=== PATIENT | female | born 1960 | race Caucasian/White ===

== ENCOUNTER 2016-12-03 16:35 | Emergency (ER) | payer BC ==
[~2016-12-03] VITALS: Ht 162.6 cm; Wt 116.3 kg
[~2016-12-03 16:35] MED LIST: ASPIRIN325 MG PO; EFFEXOR25 MG PO; PREMARIN0.45 MG PO; RITALIN5 MG PO
[2016-12-03 20:51] LABS: ADD MIUA? YES; BILIRUBIN SMALL; BLOOD NEGATIVE; COLOR YELLOW ((YELLOW)); GLUCOSE (STRIP) NEGATIVE; KETONES NEGATIVE; LEUKOCYTES TRACE; NITRITE NEGATIVE; PROTEIN (STRIP) 30; SPECIFIC GRAVITY 1.031 (1.000-1.030); UROBILINOGEN 0.2 MG/DL (0.2-1.0)
[2016-12-03 21:13] LABS: BACTERIA RARE /HPF; EPITHELIAL CELLS 2+ /HPF; MUCUS 2+ /LPF; RED BLOOD CELLS 0-5 /HPF (0-5); UCUL ADDED? NO
[2016-12-03 21:24] LABS: HEMATOCRIT 42.2 % (36.0-46.0); MCH 29.2 PG (29.0-34.0); MCHC 32.2 G/DL (30.0-36.0); MCV 90.8 FL (83-99); MEAN PLAT.VOLUME 10.1 uM^3 (9.5-12.4); PLATELET COUNT 259 K/uL (156-360); RBC DIS.WIDTH-CV 12.7 % (11.8-14.6); RBC DIS.WIDTH-SD 41.6 % (39-53); RED BLOOD COUNT 4.65 M/uL (3.80-5.20); WHITE BLOOD COUNT 9.6 K/uL (4.1-10.2)
[2016-12-03 21:32] LABS: CHLORIDE 106 mEq/L (99-109); POTASSIUM 3.9 mEq/L (3.7-5.4); SODIUM 143 mEq/L (136-147)
[2016-12-03 21:34] LABS: GLUCOSE 117 mg/dL (70-99)
[2016-12-03 21:36] LABS: ANION GAP 8 MEQ/L (2-14); TOTAL BILIRUBIN 0.3 mg/dL (0.0-1.0)
[2016-12-03 21:38] LABS: ALKALINE PHOSPHATASE 112 IU/L (3-129); GFR ESTIMATE (CALCULATED) > 59 mL/min/
[2016-12-03 21:39] LABS: UREA NITROGEN (BUN) 21 mg/dL (9-23)
[2016-12-03 21:41] LABS: LIPASE 19 U/L (1.0-51.0)
[2016-12-03] MEDS ORDERED: ULTRAM50 MG PO (23:39)
[2016-12-03 23:56] VITALS: BP 132/72
== END 2016-12-03 23:57 | disposition home or self-care (01) ==
LOC: EME 16:35
PROVIDERS: Nurse Practitioner Family
DX: K57.90 Diverticulosis of intestine, part unspecified, without perforation or abscess without bleeding (principal); N20.0 Calculus of kidney; Z87.442 Personal history of urinary calculi; R10.11 Right upper quadrant pain; R07.9 Chest pain, unspecified; E78.5 Hyperlipidemia, unspecified; Z79.82 Long term (current) use of aspirin; F17.200 Nicotine dependence, unspecified, uncomplicated
CPT/HCPCS: 71020; 74176; 76705; 80053; 81003; 83690; 85027; 99281; 99284

== ENCOUNTER 2017-01-19 13:25 | Emergency (ER) | payer BC ==
[~2017-01-19] VITALS: Ht 162.6 cm; Wt 115.3 kg
[~2017-01-19 13:25] MED LIST changes: +ULTRAM50 MG PO
[2017-01-19 14:21] LABS: HEMATOCRIT 43.1 % (36.0-46.0); MCH 29.4 PG (29.0-34.0); MCHC 32.7 G/DL (30.0-36.0); MCV 89.8 FL (83-99); MEAN PLAT.VOLUME 9.7 uM^3 (9.5-12.4); PLATELET COUNT 246 K/uL (156-360); RBC DIS.WIDTH-CV 12.9 % (11.8-14.6); RBC DIS.WIDTH-SD 42.2 % (39-53); WHITE BLOOD COUNT 15.1 K/uL (4.1-10.2)
[2017-01-19 14:33] LABS: CHLORIDE 102 mEq/L (99-109); POTASSIUM 3.7 mEq/L (3.7-5.4); SODIUM 140 mEq/L (136-147)
[2017-01-19 14:35] LABS: GLUCOSE 112 mg/dL (70-99)
[2017-01-19 14:36] LABS: ANION GAP 12 MEQ/L (2-14)
[2017-01-19 14:39] LABS: GFR ESTIMATE (CALCULATED) 55 mL/min/
[2017-01-19 14:40] LABS: UREA NITROGEN (BUN) 24 mg/dL (9-23)
[2017-01-19 15:28] LABS: ADD MIUA? YES; BILIRUBIN NEGATIVE; BLOOD LARGE; COLOR AMBER ((YELLOW)); GLUCOSE (STRIP) NEGATIVE; KETONES NEGATIVE; LEUKOCYTES NEGATIVE; NITRITE NEGATIVE; PROTEIN (STRIP) 30; SPECIFIC GRAVITY 1.023 (1.000-1.030); UROBILINOGEN 0.2 MG/DL (0.2-1.0)
[2017-01-19 15:44] LABS: BACTERIA RARE /HPF; EPITHELIAL CELLS RARE /HPF; MUCUS TRACE /LPF; RED BLOOD CELLS TNTC /HPF (0-5); UCUL ADDED? YES
[2017-01-19] MEDS ORDERED: NORCO 5/3251 TABLET PO (17:07)
[2017-01-19] MEDS ORDERED: IBUPROFEN600 MG PO (17:07)
[2017-01-19 17:11] VITALS: BP 113/68
[2017-01-21] MEDS ORDERED: IBUPROFEN600 MG PO (16:28)
[2017-01-21] MEDS ORDERED: DILAUDID2 MG PO (16:29)
[2017-01-21] MEDS ORDERED: VYVANSE70 MG PO (16:31)
[2017-01-21] MEDS ORDERED: MYRBETRIQ50 MG PO (16:31)
[2017-01-21] MEDS ORDERED: MAGNESIUM250 MG PO (16:32)
[2017-01-21] MEDS ORDERED: GLUCOSAMINE &1 EAC1 PO (16:32)
[2017-01-21] MEDS ORDERED: VENTOLIN HFA18 GM IH (16:32)
[2017-01-21] MEDS ORDERED: ATIVAN2 MG PO (16:33)
[2017-01-21] MEDS ORDERED: VITAMIN D31000 UNI2 PO (16:33)
[2017-01-21] MEDS ORDERED: CALCIUM 600 +1 EA17 PO (16:34)
[2017-01-21] MEDS ORDERED: PEPCID40 MG PO (16:35)
[2017-01-21] MEDS ORDERED: MUCINEX DM ER1 EACH PO (16:36)
[2017-01-21] MEDS ORDERED: CELEBREX200 MG PO (16:36)
[2017-01-21] MEDS ORDERED: [UNRECOGNIZED DRUG - OTHER] (16:37)
== END 2017-01-19 17:18 | disposition home or self-care (01) ==
LOC: EME 13:25
DX: N20.2 Calculus of kidney with calculus of ureter (principal); R11.2 Nausea with vomiting, unspecified; R31.9 Hematuria, unspecified; K57.30 Diverticulosis of large intestine without perforation or abscess without bleeding; K76.0 Fatty (change of) liver, not elsewhere classified; Z87.442 Personal history of urinary calculi; Z90.710 Acquired absence of both cervix and uterus; Z79.82 Long term (current) use of aspirin
CPT/HCPCS: 74176; 80048; 81003; 85027; 87086; 99281; 99285; J1885; J7030

== ENCOUNTER 2017-01-22 10:51 | Day surgery (SDC) | payer BC ==
[~2017-01-22] VITALS: Ht 162.6 cm; Wt 116.1 kg
[~2017-01-22 10:51] MED LIST changes: +ATIVAN2 MG PO; +CALCIUM 600 +1 EA17 PO; +CELEBREX200 MG PO; +DILAUDID2 MG PO; +GLUCOSAMINE &1 EAC1 PO; +IBUPROFEN600 MG PO; +MAGNESIUM250 MG PO; +MUCINEX DM ER1 EACH PO; +MYRBETRIQ50 MG PO; +NORCO 5/3251 TABLET PO; +PEPCID40 MG PO; +VENTOLIN HFA18 GM IH; +VITAMIN D31000 UNI2 PO; +VYVANSE70 MG PO; +[UNRECOGNIZED DRUG - OTHER]
[2017-01-22 11:20] VITALS: BP 122/75
[2017-01-22 15:48] VITALS: BP 130/84
[2017-01-22 16:40] VITALS: BP 129/78
== END 2017-01-22 16:40 | disposition home or self-care (01) ==
LOC: SDC 10:51
PROVIDERS: Urology
DX: N13.2 Hydronephrosis with renal and ureteral calculous obstruction (principal); D72.829 Elevated white blood cell count, unspecified; K21.9 Gastro-esophageal reflux disease without esophagitis; E78.5 Hyperlipidemia, unspecified; J45.909 Unspecified asthma, uncomplicated; E66.9 Obesity, unspecified; Z68.41 Body mass index [BMI] 40.0-44.9, adult; Z87.891 Personal history of nicotine dependence; Z79.82 Long term (current) use of aspirin
CPT/HCPCS: 82365 90; C1769; C1876; J1580; J1885; J2250; J2405; J3010; J7050

== ENCOUNTER 2017-05-21 00:58 | Inpatient (IN) | payer BC ==
[~2017-05-21] VITALS: Ht 162.6 cm; Wt 111.9 kg
[2017-05-21 02:14] LABS: ADD MIUA? YES; BILIRUBIN NEGATIVE; BLOOD LARGE; COLOR YELLOW ((YELLOW)); GLUCOSE (STRIP) NEGATIVE; KETONES NEGATIVE; LEUKOCYTES TRACE; NITRITE NEGATIVE; PROTEIN (STRIP) 30; SPECIFIC GRAVITY 1.019 (1.000-1.030)
[2017-05-21 02:22] LABS: BACTERIA NONE SEEN /HPF; EPITHELIAL CELLS 2+ /HPF; HYALINE CASTS 0-5 /LPF; MUCUS 1+ /LPF; RED BLOOD CELLS TNTC /HPF (0-5); UCUL ADDED? YES
[2017-05-21 02:25] LABS: HEMATOCRIT 42.1 % (36.0-46.0); MCHC 32.3 G/DL (30.0-36.0); MCV 89.8 FL (83-99); MEAN PLAT.VOLUME 10.3 uM^3 (9.5-12.4); PLATELET COUNT 267 K/uL (156-360); RBC DIS.WIDTH-CV 12.4 % (11.8-14.6); RBC DIS.WIDTH-SD 40.6 % (39-53); RED BLOOD COUNT 4.69 M/uL (3.80-5.20); WHITE BLOOD COUNT 7.2 K/uL (4.1-10.2)
[2017-05-21 02:31] LABS: CHLORIDE 107 mEq/L (99-109); POTASSIUM 4.2 mEq/L (3.7-5.4); SODIUM 141 mEq/L (136-147)
[2017-05-21 02:34] LABS: GLUCOSE 115 mg/dL (70-99)
[2017-05-21 02:35] LABS: ANION GAP 8 MEQ/L (2-14)
[2017-05-21 02:36] LABS: TOTAL BILIRUBIN 0.4 mg/dL (0.0-1.0)
[2017-05-21 02:37] LABS: ALKALINE PHOSPHATASE 117 IU/L (3-129); GFR ESTIMATE (CALCULATED) > 59 mL/min/
[2017-05-21 02:38] LABS: UREA NITROGEN (BUN) 18 mg/dL (9-23)
[2017-05-21 12:28] VITALS: BP 93/54
[2017-05-21 16:44] VITALS: BP 101/49
[2017-05-21 19:58] VITALS: BP 101/62
[2017-05-21 23:39] VITALS: BP 100/56
[2017-05-22 03:26] VITALS: BP 116/57
[2017-05-22 06:35] LABS: HEMATOCRIT 38.6 % (36.0-46.0); MCH 28.6 PG (29.0-34.0); MCHC 31.6 G/DL (30.0-36.0); MCV 90.4 FL (83-99); MEAN PLAT.VOLUME 10.2 uM^3 (9.5-12.4); PLATELET COUNT 219 K/uL (156-360); RBC DIS.WIDTH-CV 12.4 % (11.8-14.6); RBC DIS.WIDTH-SD 40.9 % (39-53); RED BLOOD COUNT 4.27 M/uL (3.80-5.20)
[2017-05-22 06:59] LABS: ANION GAP 5 MEQ/L (2-14); CHLORIDE 110 MEQ/L (99-109); GFR ESTIMATE (CALCULATED) > 59 mL/min/; GLUCOSE 114 mg/dL (70-99); POTASSIUM 4.5 MEQ/L (3.7-5.4); SAMPLE HEMOLYSIS CHECK 0; SAMPLE ICTERIC CHECK 0; SAMPLE LIPEMIA CHECK 0; SODIUM 144 MEQ/L (136-147); UREA NITROGEN (BUN) 10 mg/dL (9-23)
[2017-05-22 07:13] VITALS: BP 112/63
[2017-05-22 11:24] VITALS: BP 104/62
[2017-05-22 15:48] VITALS: BP 121/72
[2017-05-22 19:16] VITALS: BP 130/69
[2017-05-23 00:59] VITALS: BP 121/69
[2017-05-23 04:12] VITALS: BP 121/59
[2017-05-23 07:21] VITALS: BP 126/54
[2017-05-23] MEDS ORDERED: CIPRO500 MG PO (08:32)
[2017-05-23] MEDS ORDERED: FLAGYL500 MG PO (08:32)
[2017-05-23] MEDS ORDERED: ULTRAM50 MG PO (10:46)
[2017-05-23] MEDS ORDERED: TAMSULOSIN HCL0.4 MG PO (10:46)
== END 2017-05-23 11:31 | disposition home or self-care (01) | DRG 694 ==
LOC: EME 00:58 → EXP 00:58 → 2EASTP 08:21 → EDOF 08:21 → ENRESERV 08:25 → 2EASTP 11:50
PROVIDERS: Internal Medicine
DX: N13.2 Hydronephrosis with renal and ureteral calculous obstruction (principal); K57.20 Diverticulitis of large intestine with perforation and abscess without bleeding; E66.01 Morbid (severe) obesity due to excess calories; E78.5 Hyperlipidemia, unspecified; R31.0 Gross hematuria; I10 Essential (primary) hypertension; K76.0 Fatty (change of) liver, not elsewhere classified; J45.909 Unspecified asthma, uncomplicated; M19.90 Unspecified osteoarthritis, unspecified site; F32.9 Major depressive disorder, single episode, unspecified; Z79.82 Long term (current) use of aspirin; Z87.442 Personal history of urinary calculi; Z87.891 Personal history of nicotine dependence; Z90.710 Acquired absence of both cervix and uterus
CPT/HCPCS: 74000; 74176; 80048; 80053; 81003; 85027; 87086; 99202; J0744; J1170; J1650; J2405; J7030; J7042; S0028; S0030